=== PATIENT | female | born 1965 | race African-American/Black ===

== ENCOUNTER 2020-11-27 09:09 | Emergency (ER) | payer OTHER, SELFPAY ==
--- NOTE | ~2020-11-27 | CT_ITS ---
EXAMINATION: CT abdomen pelvis w con INDICATION: Nausea and vomiting TECHNIQUE: Computed tomographic images of the abdomen and pelvis were obtained after the administrati on of 100 cc of Omnipaque 350 intravenous contrast. The dose-length product (DLP) was 209.97 mGy-cm. Automated exposure control and iterative reconstruction technique were employed. COMPARISON: 09/02/2010 FINDINGS: The lung bases are clear. The heart size is normal. The liver, pancreas, gallbladder, and a drenal glands are normal. A 9 mm low-attenuation lesion of the spleen likely reflects a cyst or lymph angioma. Hypoattenuating lesions in the kidneys, measuring up to 4 mm on the left, are too small to c haracterize but likely represent cysts. There is a 2 mm nonobstructing stone of the left kidney lower pole. No pathologically enlarged abdominal or pelvic lymph nodes are identified. There is no free in traperitoneal gas or evidence of bowel obstruction. IMPRESSION: 1. No CT correlate for the patient's symptoms. 2. Nonobstructing left nephrolithiasis. Reviewed, dictated and finalized at location A.
--- NOTE | 2020-11-27 09:34 | ECG_ITS ---
Measurements Intervals [place] Rate: 50 P: 56 IA: 158 QRS: 64 QRSD: 82 T: 39 QT: 447 QTc: 411 Interpretive Statements SINUS BRADYCARDIA WITH SINUS ARRHYTHMIA BASELINE WANDER- II, III, AVR, AVL, AVF, V3-V6 BORDERLINE ECG Electronically Signed On 11-27-2020 12:30:12 CDT by Ryan Diamond D.O.
[2020-11-27 09:47] VITALS: BP 140/71; PULSE 56; RESP 14; TEMP 36.8; O2SAT 99
[2020-11-27 09:56] LABS: Basophils Percent Auto 0.1 % (0.2-1.2); Hematocrit 39.7 % (37.0-47.0); Hemoglobin 12.6 g/dL (12.0-15.0); Immature Granulocyte Absolute 0.02 K/mm3 (0.00-0.031); Immature Granulocyte Percent A 0.3 % (0-0.5); Lymphocytes Percent Auto 8.6 % (18.3-44.2); Mean Corpuscular HGB Conc 31.7 g/dl (32-36); Mean Corpuscular Hemoglobin 27.9 pg (26-34); Mean Corpuscular Volume 87.8 fl (80-100); Mean Platelet Volume 9.5 fl (7.4-10.4); Monocytes Absolute Auto 0.1 K/mm3 (0.1-0.6); Monocytes Percent Auto 1.6 % (2.6-8.5); Neutrophils Absolute Auto 6.3 K/mm3 (1.3-6.7); Neutrophils Percent Auto 89.4 % (45.5-73.1); Platelet Count Result 236 k/mm3 (150-375); Red Blood Count 4.52 M/mm3 (4.2-5.4); Red Cell Distribution Width 11.7 % (11.5-14.5)
[2020-11-27 10:06] LABS: Alanine Aminotransferase 23 U/L (4-35); Albumin Level 4.5 g/dL (3.5-5.1); Alkaline Phosphatase 117 U/L (38-126); Anion Gap 8 mmol/L (8-16); Aspartate Amino Transferase 31 U/L (14-36); Bilirubin,Total 0.6 mg/dL (0.2-1.3); Blood Urea Nitrogen 15 mg/dL (7-17); Calcium 9.7 mg/dL (8.4-10.2); Carbon Dioxide 27 mmol/L (22-30); Chloride 107 mmol/L (98-107); Estimated CRCL calculation 74 ml/min; Estimated Glomerular Filt Rate > 60; Glucose 131 mg/dL (65-105); Lipase 36 U/L (23-300); Potassium 3.4 mmol/L (3.4-5.0); Sodium 142 mmol/L (137-145)
[2020-11-27] MEDS: ONDANSETRON INJ 4 MG/2 ML VIAL IV PUSH (10:12)
[2020-11-27 10:18] LABS: Add Urine Microscopic? YES; Appearance Urine Cloudy (Clear); Bacteria Urine Trace /hpf; Bilirubin Urine Negative (Negative); Blood Urine 1+ (Negative); Color Urine Yellow (Yellow); Glucose Urine UA Negative (Negative); Ketones Urine 2+ mg/dL (Negative); Leukocyte Esterase Ur Trace LEU/UL (Negative); Mucus Urine Few /lpf; Nitrate Urine Negative (Negative); Protein Urine 2+ mg/dL (Negative); RBC Urine 51-75 /hpf (0-2); Specific Grav Ur 1.028 (1.001-1.035); Squamous Epithelial Cell Urine Many /hpf (Few); Urobilinogen Urine Negative mg/dL (<2.0); WBC Urine 0-3 /hpf
--- NOTE | 2020-11-27 10:26 | PC.NURSE ---
Called lab spoke to chikis santizo on a MG
--- NOTE | 2020-11-27 10:35 | ED.NAVMDI ---
HPI - Nausea/Vomiting/Diarrhea General Chief complaint: Nausea/Vomiting/Diarrhea Stated complaint: GERD Time Seen by Provider: 11/27/20 10:12 Source: patient Mode of arrival: ambulatory Limitations: no limitations History of Present Illness HPI Narrative: This is a 54-year-old female that presents to the emergency department for nausea and vomiting since last night. Reports history of acid reflux and that it has been acting up lately. Reports she has been very nauseous since last night. She has not tried to take anything yet. Reports vague abdominal discomfort. Denies fever, chest pain, diarrhea, dysuria, or hematuria. Related Data Allergies Allergy/AdvReac Type Severity Reaction Status Date / Time No Known Allergies Allergy Unverified 08/21/17 20:19 Review of Systems Review of Systems: Narrative: CONSTITUTIONAL: Denies fever CARDIOVASCULAR: Denies chest pain GASTROINTESTINAL: Reports abdominal pain, nausea and vomiting. Denies diarrhea. GENITOURINARY: Denies dysuria or hematuria. All systems reviewed & are unremarkable except as noted in HPI and below PMFSH Past Medical History Medical History (Updated 11/27/20 @ 15:18 by Gloria Palomino PA-C) History of gastroesophageal reflux (GERD) Surgical History Surgical History (Updated 11/27/20 @ 10:36 by Gloria Palomino PA-C) History of esophagogastroduodenoscopy (EGD) Social History Social History (Updated 11/27/20 @ 10:36 by Gloria Palomino PA-C) Substance use: current Substance use type: marijuana Exam Narrative: Exam Narrative: GENERAL: Well-appearing, well-nourished, and in no acute distress. HEAD: Normocephalic, atraumatic. EYES: EOMI. CHEST: Clear to auscultation. No respiratory distress. No wheezes rales or rhonchi HEART: Regular rate and rhythm. No murmur heard. Normal peripheral pulses. ABDOMEN: Soft, nontender, nondistended, normal active bowel sounds. No CVA tenderness EXTREMITIES: Normal range of motion. No edema. SKIN: Warm, dry, no rash. NEURO: No focal deficits. Alert and oriented x3. PSYCH: Normal mood and affect Course Vital Signs Vital signs: Vital Signs Temperature 98.2 F 11/27/20 09:47 Pulse Rate 56 L 11/27/20 09:47 Respiratory Rate 14 11/27/20 09:47 Blood Pressure 140/71 11/27/20 09:47 Pulse Oximetry 99 11/27/20 09:47 Temperature 98.2 F 11/27/20 09:47 Pulse Rate 57 L 11/27/20 14:48 Respiratory Rate 12 11/27/20 14:48 Blood Pressure 126/67 11/27/20 14:48 Pulse Oximetry 98 11/27/20 14:48 MDM - Nausea/Vomiting/Diarrhea MDM Narrative Medical decision making narrative: Patient presents to the ER for abdominal pain, nausea and vomiting. She is afebrile and nontoxic-appearing. Vitals are stable. CBC and metabolic panel without concerning findings. Lipase is normal. UA without evidence of infection. Bedside test is negative. CT scan abdomen and pelvis without acute findings. Patient updated on case findings. Reports improvement with pain medication and antiemetic. She is stable and felt appropriate for further outpatient evaluation. Tolerated p.o. challenge. She was given warnings to return to the ER Lab Data Attestation: I reviewed the patient's lab results. Result diagrams: 11/27/20 09:47 11/27/20 09:47 Labs: Lab Results 11/27/20 11/27/20 11/27/20 Range/Units 09:47 09:47 09:48 WBC 7.0 (4.5-10.0) K/mm3 RBC 4.52 (4.2-5.4) M/mm3 Hgb 12.6 (12.0-15.0) g/dL Hct 39.7 (37.0-47.0) % MCV 87.8 (80-100) fl MCH 27.9 (26-34) pg MCHC 31.7 L (32-36) g/dl RDW 11.7 (11.5-14.5) % Plt Count 236 (150-375) k/mm3 MPV 9.5 (7.4-10.4) fl Immature Gran % (Auto) 0.3 (0-0.5) % Neut % (Auto) 89.4 H (45.5-73.1) % Lymph % (Auto) 8.6 L (18.3-44.2) % [place]ata[place] % (Auto) 1.6 L (2.6-8.5) % Eos % (Auto) 0.0 (0-4.4) % Baso % (Auto) 0.1 L (0.2-1.2) % Lymph # (Auto) 0.60 L (0.9-3.2) K/mm3
[2020-11-27] MEDS: PANTOPRAZOLE SODIUM IV 40 MG VIAL IV PUSH (10:41)
[2020-11-27] MEDS: SODIUM CHLORIDE 0.9% IV 1,000 ML 999 ML IV CONT (10:41)
[2020-11-27] MEDS: diphenhydrAMINE HCl INJ 50 MG/ML VIAL 25 MG IV PUSH (10:41)
[2020-11-27] MEDS: METOCLOPRAMIDE HCL INJ 10 MG/2 ML VIAL IV PUSH (10:41)
[2020-11-27 10:42] LABS: Magnesium 1.7 mg/dL (1.6-2.3)
[2020-11-27 11:32] VITALS: BP 107/68; PULSE 54; RESP 12; O2SAT 99
[2020-11-27] MEDS: PROMETHAZINE HCL 25 MG/ML AMPUL 12.5 MG IV PUSH (12:00)
[2020-11-27] MEDS: MORPHINE SULFATE (*CRX) 4 MG/ML INJ IV PUSH (14:11)
[2020-11-27 14:48] VITALS: BP 126/67; PULSE 57; RESP 12; O2SAT 98
== END 2020-11-27 14:48 | disposition home or self-care (01) ==
PROVIDERS: Physician Assistant; Emergency Provider Emergency Medicine; PCP Family Medicine
DX: R11.2 Nausea with vomiting, unspecified (principal); K21.9 Gastro-esophageal reflux disease without esophagitis; N20.0 Calculus of kidney; R00.1 Bradycardia, unspecified
CPT/HCPCS: 36415; 74177; 80053; 81001; 81025; 83690; 83735; 85025; 93005; 96361; 96374; 96375; 99284; C9113; J0131; J1200; J2270; J2405; J2550; J2765; J7030; Q9967